=== PATIENT | female | born 1935 | race Caucasian/White ===

== ENCOUNTER → 2017-04-19 | Outpatient (CLI) | payer OTHER | LOC: FIMAGING 08:17 | PROVIDERS: ATTEND Internal Medicine | DX: Z12.31 Encounter for screening mammogram for malignant neoplasm of breast (principal); Z80.3 Family history of malignant neoplasm of breast | CPT/HCPCS: G0202 ==

== ENCOUNTER → 2018-04-23 | Outpatient (CLI) | payer OTHER, MEDICARE | LOC: FIMAGING 09:21 | PROVIDERS: ATTEND Internal Medicine | DX: Z12.31 Encounter for screening mammogram for malignant neoplasm of breast (principal); Z80.3 Family history of malignant neoplasm of breast ==

== ENCOUNTER → 2018-10-07 | Outpatient (CLI) | payer OTHER, MEDICARE | LOC: SUPIMAGING 11:41 | PROVIDERS: ATTEND Family Medicine | DX: M19.011 Primary osteoarthritis, right shoulder (principal); M75.101 Unspecified rotator cuff tear or rupture of right shoulder, not specified as traumatic | CPT/HCPCS: 73030-PN ==

== ENCOUNTER → 2018-11-25 | Outpatient (CLI) | payer OTHER, MEDICARE | LOC: BHFA 10:15 | PROVIDERS: ATTEND Internal Medicine Cardiovascular Disease | DX: I48.0 Paroxysmal atrial fibrillation (principal); Z95.0 Presence of cardiac pacemaker ==

== ENCOUNTER 2018-12-11 07:10 | Inpatient (IN) | payer OTHER, MEDICARE ==
--- NOTE | 2018-12-11 06:19 | PDHPUP ---
History & Physical Update H&P update statement: This history and physical update is based on an assessment of the patient which was completed after admission or registration (within 24 hours), but prior to the surgery/procedure. H&P update: H&P reviewed & patient examined, no change in patient's condition since H&P completed
[2018-12-11] MEDS ORDERED: TRANEXAMIC ACID 3,000 MG in NS (SYRINGE) 50 ML IRR ONE (08:21)
[2018-12-11] MEDS ORDERED: ROPIVACAINE 0.2% 80 MG, EPINEPHrine 0.2 MG, KETOROLAC TROMETHAMINE 30 MG in SYRINGE 0 ML IU ONE (08:21)
[2018-12-11] MEDS ORDERED: TRANEXAMIC ACID 3,000 MG/50 ML BAG IRR ONE (11:02)
[2018-12-11] MEDS ORDERED: VANCOMYCIN 1 GM VIAL ONE (11:02)
[2018-12-11] MEDS ORDERED: FAMOTIDINE 20 MG TAB PO ONE (12:19)
[2018-12-11] MEDS ORDERED: ceFAZolin 2 GM/DEXTROSE 100 ML IV ONE (12:19)
[2018-12-11] MEDS ORDERED: DEXAMETHASONE 4 MG/ML VIAL IVP ONE (12:19)
[2018-12-11] MEDS ORDERED: ACETAMINOPHEN 325 MG TAB PO ONE (12:19)
[2018-12-11] MEDS ORDERED: LR 1,000 ML IV ONE (12:20)
[2018-12-11] MEDS ORDERED: LIDOCAINE 1% 2 ML INJ ID PRN (12:20)
[2018-12-11] MEDS ORDERED: MIDAZOLAM 2 MG/2 ML VIAL IVP ONE (14:13)
[2018-12-11] MEDS ORDERED: MIDAZOLAM 2 MG/2 ML VIAL ONE (14:15)
--- NOTE | 2018-12-11 14:15 | PDANEPAE ---
ANE History of Present Illness 83 year old for Left TKA ANE Past Medical History - Cardiovascular History Hx Hypertension: Yes Hx Arrhythmias: Yes Hx Chest Pain: No Hx Coronary Artery / Peripheral Vascular Disease: No Hx CHF / Valvular Disease: Yes Hx Palpitations: No Cardiovascular History Comment: htn. PAF. hx of mitral regurg with MVR/ Maze 2010. SSS- pacemaker placed. followed by Dr. Ahmadi at [facility]. - PER [facility] RN- NO MAGNET RATE ON DEVICE. IF MAGNET APPLIED IT WILL GO TO DOO=90 X 10 BEATS THEN GO BACK TO PREVIOUS PROGRAMMING - Pulmonary History Hx COPD: No Hx Asthma/Reactive Airway Disease: No Hx Recent Upper Respiratory Infection: No Hx Oxygen in Use at Home: No Hx Sleep Apnea: No Sleep Apnea Screening Result - Last Documented: Negative - Neurologic History Hx Cerebrovascular Accident: Yes Hx Seizures: No Hx Dementia: No Neurologic History Comment: TIA x2 in 2012 - Endocrine History Hx Diabetes: No - Renal History Hx Renal Disorders: No - Liver History Hx Hepatic Disorders: No - Neurological & Psychiatric Hx Hx Neurological and Psychiatric Disorders: No - Cancer History Hx Cancer: No - Congenital Disorder History Hx Congenital Disorders: No - GI History Hx Gastrointestinal Disorders: No - Other Health History Other Health History: wears glasses. fragile skin - Chronic Pain History Chronic Pain: Yes (l hip) - Surgical History Prior Surgeries: pacemaker placed 08/2011. MVR/ Maze with Richie 09/08/11. right TKA with Roter 01/03/12 ANE Review of Systems Review of systems is: negative Review of Systems: - Exercise capacity METS (RN): 4 METS - Pacemaker Pacemaker Type: Permanent Pacer/Defib Pacemaker Assistant Sales Manager: [employer] Pacemaker Model: Sascha GRIMES Pacemaker Mode: DDD-CLS Pacemaker Set Rate: 60 Date Pacemaker Last Checked: August 2018 ANE Patient History - Allergies Allergies/Adverse Reactions: Sulfa (Sulfonamide Antibiotics) Allergy (Unknown, Verified 11/28/18 10:48) Makes her sensitive to the sun scallops Allergy (Verified 11/28/18 10:48) Vomiting - Home Medications Home medications: home medication list seen and reviewed Home Medications: Vit C/Dl-E AC/Lut/Copper/Znox [Preservision Softgel] 1 each PO BID 03/16/15 [ Last Taken 11/28/18] Latanoprost 0.005% [Xalatan 0.005% (*)] 1 drops EACHEYE HS 11/26/18 [Last Taken 12/10/18 22:00] Metoprolol Succinate Xr [Toprol Xl 25 mg (*)] 25 mg PO HS 11/26/18 [Last Taken 12/10/18 22:00] Naproxen Sodium [Aleve 220 MG (*)] 220 mg PO BID PRN 11/26/18 [Last Taken ] Rivaroxaban [Xarelto] 20 mg PO DAILY 11/26/18 [Last Taken 12/06/18] - NPO status NPO Since - Liquids (Date): 12/11/18 NPO Since - Liquids (Time): 10:00 NPO Since - Solids (Date): 12/10/18 NPO Since - Solids (Time): 18:00 - Anes Hx Anes Hx: post operative nausea and vomiting - Smoking Hx Smoking Status: Never smoked - Family Anes Hx Family Hx Anesthesia Complications: unknown ANE Labs/Vital Signs - Vital Signs Blood Pressure: 139/82 Heart Rate: 66 Respiratory Rate: 16 O2 Sat (%): 92 Height: 165.1 cm Weight: 63.503 kg ANE Physical Exam - Airway Neck exam: FROM Mallampati Score: Class 1 Mouth exam: normal dental/mouth exam - Pulmonary Pulmonary: no respiratory distress - Cardiovascular Cardiovascular: regular rate and rhythym - ASA Status ASA Status: II ANE Anesthesia Plan Anesthesia Plan: spinal
[2018-12-11] MEDS ORDERED: PROPOFOL/EMULSION 500 MG/50 ML BOTTLE IV ONE (14:40)
[2018-12-11] MEDS ORDERED: HYDROmorphONE/DILAUDID 2 MG TAB PO PRN (15:04)
[2018-12-11] MEDS ORDERED: CYCLOBENZAPRINE 10 MG TAB PO PRN (15:04)
[2018-12-11] MEDS ORDERED: BISACODYL 10 MG SUPP PR PRN (15:04)
[2018-12-11] MEDS ORDERED: ONDANSETRON 4 MG/2 ML VIAL IVP PRN ×2 (15:04→15:31)
[2018-12-11] MEDS ORDERED: TEMAZEPAM 15 MG CAP PO PRN (15:04)
[2018-12-11] MEDS ORDERED: diphenhydrAMINE 25 MG CAP PO PRN (15:04)
[2018-12-11] MEDS ORDERED: LACTULOSE 20 GM/30 ML UDCUP PO PRN (15:04)
[2018-12-11] MEDS ORDERED: PROMETHAZINE HCL 25 MG SUPPR PR PRN (15:04)
[2018-12-11] MEDS ORDERED: DIPHENOXYLATE/ATROPINE LOMOTIL 1 TAB PO PRN (15:04)
[2018-12-11] MEDS ORDERED: METOCLOPRAMIDE 10 MG/2 ML VIAL IVP PRN (15:04)
[2018-12-11] MEDS ORDERED: POLYETHYLENE GLYCOL 3350 17 GM PKT PO PRN (15:04)
[2018-12-11] MEDS ORDERED: ONDANSETRON DISINTEGRATING 4 MG TAB PO PRN (15:04)
[2018-12-11] MEDS ORDERED: MAGNESIUM HYDROXIDE 30 ML UDCUP PO PRN (15:04)
[2018-12-11] MEDS ORDERED: PROMETHAZINE HCL 25 MG/ML INJ IVP PRN ×2 (15:04→15:31)
[2018-12-11] MEDS ORDERED: LR 1,000 ML IV SCH (15:30)
[2018-12-11] MEDS ORDERED: NALOXONE HCL 0.4 MG/ML INJ IVP PRN (15:31)
[2018-12-11] MEDS ORDERED: fentaNYL 100 MCG/2 ML INJ IVP PRN (15:31)
--- NOTE | 2018-12-11 15:33 | PDMN ---
Medical Necessity Medical necessity: Pt meets IP criteria as of 12/11/2018 per and MCG S-700 ( TKA); est los > 2 mn for post op care s/p TKA in an elderly pt with hx of afib and pacemaker.
--- NOTE | 2018-12-11 16:01 | POSTOPPROG ---
Post Op Note Date of Operation: 12/11/18 Surgeon: Keenan Edmonds Dividend Clerk: elisa edmonds PA-C and Lety Esaprza PA-C Anesthesiologist: dr. romero Anesthesia: Spinal, Other (Specify) (adductor canal block) Pre-op Diagnosis: left knee OA Post-op Diagnosis: same Indication: left knee pain Procedure: L TKA Findings: severe knee OA Inf/Abcess present in the surg proc area at time of surgery?: No EBL: 50-100
--- NOTE | 2018-12-11 16:12 | POSTANESTH ---
Post Anesthetic Evaluation Cardiovascular Status: Normal, Stable Respiratory Status: Normal, Stable Level of Consciousness/Mental Status: Can Participate in Eval Pain Control: Adequate, Prn Tx Ordered Nausea/Vomiting Control: Adequate, Prn Tx Ordered Complications Possibly Related to Anesthesia: None Noted (Adductor canal block placed in PACU)
[2018-12-11] MEDS: ACETAMINOPHEN 325 MG TAB PO SCH ×2 (18:32→23:19)
[2018-12-11] MEDS: FAMOTIDINE 20 MG TAB PO SCH (20:38)
[2018-12-11] MEDS: SENNOSIDES/DOCUSATE SODIUM TAB PO SCH (20:39)
[2018-12-11] MEDS ORDERED: LATANOPROST 0.005% 2.5 ML OPHT DROPS EACHEYE SCH (21:00)
[2018-12-11] MEDS ORDERED: METOPROLOL SUCCINATE XR 25 MG TAB PO SCH (21:00)
[2018-12-11] MEDS: ceFAZolin 2 GM/DEXTROSE 100 ML IV SCH (23:19)
[2018-12-12] MEDS: ceFAZolin 2 GM/DEXTROSE 100 ML IV SCH (05:54)
[2018-12-12] MEDS: ACETAMINOPHEN 325 MG TAB PO SCH (05:54)
[2018-12-12] MEDS: FAMOTIDINE 20 MG TAB PO SCH (07:57)
[2018-12-12] MEDS: SENNOSIDES/DOCUSATE SODIUM TAB PO SCH (08:09)
[2018-12-12 08:28] VITALS: BP 100/54
--- NOTE | 2018-12-12 08:33 | GOP ---
DATE OF OPERATION: 12/11/2018 SURGEON: Luly Aguilar MD [employer] SPECIALIST: FALLON Lozano ANESTHESIA: Spinal. PREOPERATIVE DIAGNOSIS: Left knee osteoarthritis. POSTOPERATIVE DIAGNOSIS: Left knee osteoarthritis. PROCEDURE PERFORMED: Left total knee replacement. FINDINGS: ESTIMATED BLOOD LOSS: 30 cc. INDICATIONS: This is a 83-year-old female with severe and progressive pain and deformity of the left knee unresponsive to conservative care. Risks and benefits of the surgical intervention were explai mathew in detail. DESCRIPTION OF PROCEDURE: The patient was brought to the operative room and placed on the table in t he supine position. Spinal anesthesia was induced without difficulty. A pneumatic tourniquet was ap plied about the left proximal thigh, and the leg was prepped and draped in a sterile fashion. The le g cali was applied. After exsanguination by elevation the tourniquet was inflated to 250 mm of roma cury. Incision was made anterior medial from the tibial tuberosity to a point 2 cm proximal to the superior pole of the patella. Medial parapatellar arthrotomy was carried out from the superior pole of the p atella and posteriorly in line with the fibers of the Type II VMO. The medial collateral ligament wa s elevated and the infrapatellar fat pad was resected. The patella was everted and the articular surface was excised. A 32 mm patellar button was placed. T he distal femoral guide hole was drilled and the 6 degree alignment dmitriy was placed. A 10 mm distal f emoral cut was made without difficulty. Attention was turned to the tibia and a standard 5 mm cut based on the medial tibial condyle was perf ormed. The tibial articular surface was excised without difficulty. Attention was turned back to the femur and a size 4 Triathlon, femoral cutting block was positioned. Anterior, posterior, and chamfer cuts were made, followed by the intercondylar box cut. The knee was extended and the remnants of the medial and lateral meniscus were excised. The posterio r capsule was injected with ropivacaine, epinephrine and Toradol. A size 4 press-fit tibial tray was positioned. Trial reduction was then carried out. There was excellent range of motion, alignment, and stability using the 9 mm polyethylene. All trials were then removed. The joint was thoroughly irrigated and carefully dried. Two packages of cement and 2 grams of vancomycin were mixed in the vacuum mixer and placed on the fixation surface s of all surfaces of the components. The components were implanted and all excess cement was thoroug hly removed. The permanent 9 mm polyethylene was placed without difficulty. The tourniquet was deflated and all bleeders were coagulated. The wound was thoroughly irrigated and closed using interrupted sutures of 2-0 Vicryl for the joint capsule. The subcu was closed with 3-0 Vicryl and the skin with 4-0 Monocryl. Dermabond and Steri-Strips were applied followed by a compre ssive dressing. The patient was then moved from the operating room to the recovery room in good cond ition, having tolerated the procedure well. PATHOLOGY: Severe lateral and patellofemoral osteoarthritis. /[id number]/MODL
[2018-12-12] MEDS ORDERED: RIVAROXABAN 20 MG TAB PO SCH (09:00)
--- NOTE | 2018-12-12 09:18 | SOAPPROG ---
SOAP Progress Note Assessment/Plan: Assessment: Patient is doing well POD 1 s/p LTKA Pain management: pain is well controlled on oral pain meds. VTE ppx: restart pt.'s pre-surgery dose of Xarelto, cont ALISHA and SCDs Anemia: level is expected initially postop. Asymptomatic. Continue to monitor D/c planning:patient has done much better than anticipated. Patient is stable, BP stable, pain well controlled and patient is eager for discharge to home. May d/c to home today pending release from PT Plan: 12/12/18 09:15 Subjective: No nausea, vomiting, chest pain, shortness of breath. Tolerating oral pain meds. Objective: Vital Signs Temp Pulse Resp BP Pulse Ox 36.6 C 69 16 100/54 L 93 12/12/18 08:00 12/12/18 08:00 12/12/18 08:00 12/12/18 08:00 12/12/18 08:00 Laboratory Results 12/12/18 04:42 12/12/18 04:42 12/11/18 12/12/18 12/13/18 05:59 05:59 05:59 Intake Total 1340 Output Total 230 Balance 1110 LLE: incision dressing clean and dry, NVI, positive PF/DF ICD10 Worksheet Patient Problems: Problems Problem Status Onset Primary osteoarthritis of left knee Acute TIA (transient ischemic attack) Acute
--- NOTE | 2018-12-12 10:07 | ASMTLACE ---
JOHN Length of stay for Answers: 2 days current admission Acuity / Level of Answers: Yes Care: Did the patient have an inpatient admission? # of Emergency department Answers: 0 visits in the last 6 months Score: 5 Date Signed: 12/12/2018 10:07 AM Electronically Signed By:ELIAS Arita
--- NOTE | 2018-12-12 17:02 | GDS ---
ADMISSION DIAGNOSIS: Left knee osteoarthritis. DISCHARGE DIAGNOSIS: Left knee osteoarthritis. PROCEDURE: Left total knee arthroplasty. VTE PROPHYLAXIS: Recommend restarting Xarelto on day after surgery. BRIEF DESCRIPTION OF HOSPITAL STAY Patient was admitted for an elective joint arthroplasty. The patient tolerated the procedure well an d has passed physical therapy. The patient was given appropriate antibiotic prophylaxis and venous t hromboembolism prophylaxis. The patient's pain was well controlled on oral pain medication, patient was holding down food, and had urinated. Decision was made to discharge the patient. The patient wa s given post-operative prescriptions pre-operatively. PLAN: Followup scheduled with Dr. Aguilar's office on January 02 at 9:45 a.m. /[id number]/MODL
== END 2018-12-12 10:27 | disposition home or self-care (01) | DRG 470 ==
LOC: F3N 07:10
PROVIDERS: ADMIT Orthopaedic Surgery; ATTEND Orthopaedic Surgery
PROC: 0SRD0J9 Replacement of Left Knee Joint with Synthetic Substitute, Cemented, Open Approach (ICD-10-PCS; principal; 2018-12-11 14:00)
DX: M17.12 Unilateral primary osteoarthritis, left knee (principal); I48.0 Paroxysmal atrial fibrillation; I25.10 Atherosclerotic heart disease of native coronary artery without angina pectoris; I34.0 Nonrheumatic mitral (valve) insufficiency; I25.2 Old myocardial infarction; Z95.1 Presence of aortocoronary bypass graft; Z86.73 Personal history of transient ischemic attack (TIA), and cerebral infarction without residual deficits
CPT/HCPCS: 97110-GP; 97161-GP; J0171; J0690; J1100; J1885; J2250; J2704; J2795; J3370

== ENCOUNTER → 2019-04-28 | Outpatient (CLI) | payer OTHER, MEDICARE | LOC: FIMAGING 09:53 ==